=== PATIENT | male | born 1975 | race Caucasian/White ===

== ENCOUNTER 2024-06-01 07:26 | Day surgery (SDC) | payer MEDICAID ==
[~2024-06-01] VITALS: Ht 167.6 cm; Wt 95.3 kg
[2024-06-01] MEDS ORDERED: MIDAZOLAM HCL 5 MG/5 ML VIAL ONE (08:03)
[2024-06-01] MEDS ORDERED: MEPERIDINE 100 MG INJ. 100 MG/ML VIAL ONE (08:03)
[2024-06-01 12:20] VITALS: O2SAT 98
[2024-06-01 15:17] VITALS: BP_SYST 132; PULSE 82; RESP 13
== END 2024-06-01 11:55 | disposition home or self-care (01) ==
LOC: SDS 07:26 → SMU 07:28 → SDS 11:55
PROVIDERS: ATTEND Internal Medicine
DX: Z12.11 Encounter for screening for malignant neoplasm of colon (principal); D12.3 Benign neoplasm of transverse colon; K63.5 Polyp of colon; K64.8 Other hemorrhoids; I10 Essential (primary) hypertension; E11.9 Type 2 diabetes mellitus without complications; E78.5 Hyperlipidemia, unspecified; Z98.890 Other specified postprocedural states; Z79.84 Long term (current) use of oral hypoglycemic drugs; Z79.899 Other long term (current) drug therapy
CPT/HCPCS: 45380; 45385; 99152; 82948; 88305; G0378; J2250; J2175